=== PATIENT | female | born 2000 | race Caucasian/White ===

== ENCOUNTER 2024-06-28 08:00 | Outpatient (CLI) | payer OTHER ==
[2024-06-28 18:05] LABS: BILIRUBIN,URINE NEGATIVE (NEGATIVE); GLUCOSE, URINE (UA) NEGATIVE (NEGATIVE); KETONES,URINE (UA) NEGATIVE (NEGATIVE); LEUKOCYTE ESTERASE, URINE NEGATIVE (NEGATIVE); NITRITE,URINE NEGATIVE (NEGATIVE); OCCULT BLOOD,URINE NEGATIVE (NEGATIVE); PROTEIN,URINE NEGATIVE (NEGATIVE); UROBILINOGEN,URINE 0.2 (NORMAL) E.U./dL (NORMAL)
[2024-06-28 18:10] LABS: CLARITY,URINE CLEAR (CLEAR)
[2024-06-28 18:17] LABS: BACTERIA,URINE Rare /HPF (None Seen); RBC,URINE 0-5 /HPF (0-5); SQUAMOUS EPITHELIAL CELL,UR FEW Squamous (<= Few); WBC,URINE 0-3 /HPF (0-5)
[2024-06-28 21:09] LABS: CHLAMYDIA TRACHOMATIS DNA NEGATIVE (NEGATIVE); NEISSERIA GONORRHOEAE DNA NEGATIVE (NEGATIVE); TRICHOMONAS VAGINALIS DNA NEGATIVE (NEGATIVE)
== END 2024-06-28 23:59 | disposition home or self-care (01) ==
LOC: LAB.WC 08:00
PROVIDERS: ATTEND Obstetrics & Gynecology
DX: Z34.90 Encounter for supervision of normal pregnancy, unspecified, unspecified trimester (principal); Z36.89 Encounter for other specified antenatal screening
CPT/HCPCS: 36415; 80053; 81001; 83036; 85025; 86592; 86762; 86787; 86803; 86850; 86900; 86901; 87086; 87340; 87389; 87491; 87591; 87661

== ENCOUNTER 2024-06-28 15:54 | Outpatient (CLI) | payer OTHER ==
[2024-06-28 16:09] LABS: BASOPHILS % (AUTO) 0.2 %; EOSINOPHILS # (AUTO) 0.2 10^3/uL (0.0-0.7); EOSINOPHILS % (AUTO) 1.7 %; HCT - HEMATOCRIT 37.1 % (37.0-47.0); HGB - HEMOGLOBIN 12.8 g/dL (12.0-16.0); LYMPHOCYTES # (AUTO) 1.7 10^3/uL (1.5-3.5); LYMPHOCYTES % (AUTO) 13.2 %; MEAN CORPUSCULAR HEMOGLOBIN 30.2 pg (27.0-31.0); MEAN CORPUSCULAR HGB CONC 34.5 g/dL (32.0-36.0); MEAN CORPUSCULAR VOLUME 87.5 fL (81.0-99.0); MONOCYTES # (AUTO) 0.8 10^3/uL (0.0-1.0); MONOCYTES % (AUTO) 6.4 %; NEUTROPHILS # (AUTO) 9.8 10^3/uL (1.5-6.6); NEUTROPHILS % (AUTO) 78.2 %; PLT - PLATELET COUNT 272 10^3/uL (130-450); RED BLOOD COUNT 4.24 10^6/uL (4.20-5.40); RED CELL DISTRIBUTION WIDTH 12.6 % (12.0-15.0); WHITE BLOOD COUNT 12.6 x10^3/uL (4.8-10.8)
[2024-06-28 16:37] LABS: ALBUMIN/GLOBULIN RATIO 1.3 (1.0-2.2); BILIRUBIN,TOTAL 0.2 mg/dL (0.2-1.0); CALCIUM 9.4 mg/dL (8.5-10.3); CREATININE 0.6 mg/dL (0.6-1.3); POTASSIUM 3.8 mmol/L (3.5-4.5); TOTAL PROTEIN 7.1 g/dL (6.4-8.9)
[2024-06-28 23:09] LABS: ESTIMATED AVERAGE GLUCOSE 85 mg/dL (70-100); HEMOGLOBIN A1c% 4.6 % (4.27-6.07)
== END 2024-06-28 15:55 | disposition home or self-care (01) ==
LOC: LAB 15:54
PROVIDERS: ATTEND Obstetrics & Gynecology
DX: Z34.90 Encounter for supervision of normal pregnancy, unspecified, unspecified trimester (principal); Z36.89 Encounter for other specified antenatal screening
CPT/HCPCS: 36415; 80053; 83036; 85025; 86592; 86762; 86787; 86803; 86850; 86900; 86901; 87340; 87389

== ENCOUNTER 2024-11-17 20:18 | Inpatient (IN) ==
[2024-11-17] MEDS ORDERED: ONDANSETRON ODT 4 MG TABLET TL PRN (20:56)
[2024-11-17] MEDS ORDERED: NIFEdipine 10 MG CAPSULE PO PRN (20:56)
[2024-11-17] MEDS ORDERED: LABETALOL 20 MG/4 ML SYRINGE IVP PRN ×3 (20:56)
[2024-11-17] MEDS ORDERED: OXYTOCIN 10 UNIT/ML VIAL IM PRN (20:56)
[2024-11-17] MEDS ORDERED: METOCLOPRAMIDE 10 MG TABLET PO PRN (20:56)
[2024-11-17] MEDS ORDERED: SODIUM CHLORIDE FLUSH 0.9% 10 ML SYRINGE IVP PRN (20:56)
[2024-11-17] MEDS ORDERED: ONDANSETRON 4 MG/2 ML VIAL IVP PRN (20:56)
[2024-11-17] MEDS ORDERED: TRANEXAMIC ACID IN NACL 1,000 MG/100 ML BAG IV PRN (20:56)
[2024-11-17] MEDS ORDERED: LACTATED RINGERS 1,000 ML IV PRN (20:56)
[2024-11-17] MEDS ORDERED: CARBOPROST TROMETHAMINE 250 MCG/ML VIAL IM PRN (20:56)
[2024-11-17] MEDS ORDERED: lidocaine 1% 20 ML MDV ID PRN (20:56)
[2024-11-17] MEDS ORDERED: hydrALAZINE INJ 20 MG/ML VIAL IVP PRN ×2 (20:56)
[2024-11-17] MEDS ORDERED: METOCLOPRAMIDE 10 MG/2 ML VIAL IVP PRN (20:56)
[2024-11-17] MEDS ORDERED: METHYLERGONOVINE 0.2 MG/ML VIAL IM PRN (20:56)
[2024-11-17] MEDS ORDERED: miSOPROStoL 200 MCG TABLET BC PRN (20:56)
[2024-11-17] MEDS ORDERED: miSOPROStoL 100 MCG TABLET VG SCH (21:00)
[2024-11-17 21:48] LABS: ALBUMIN 3.6 g/dL (3.2-5.5); ALBUMIN/GLOBULIN RATIO 1.4 (1.0-2.2); BILIRUBIN,TOTAL 0.2 mg/dL (0.2-1.0); CALCIUM 9.3 mg/dL (8.5-10.3); CREATININE 0.7 mg/dL (0.6-1.3); POTASSIUM 3.6 mmol/L (3.5-4.5); TOTAL PROTEIN 6.2 g/dL (6.4-8.9)
[2024-11-17] MEDS ORDERED: ZOLPIDEM 5 MG TABLET PO PRN (21:49)
--- NOTE | 2024-11-17 22:04 | HISTORY & PHYSICAL EXAMINATION ---
Admit History Visit Reason Visit Reason: Other (24yo at 37.1w presenting for scheduled IOL for GHTN) : 1 Parity: 0 Care: positive [facility] Risk/History: positive Labor induction Complications This : positive induced HTN Smoking Status: Never smoker Mother's Labs Mother's Blood Type: positive B Mother's RH: positive Positive GBS: positive Group B Strep Positive Rubella Status: positive Immune Other Maternal History Other Maternal History: BMI: 28.08 Blood type: B+ Antibody Screen: negative CBC: PLT/HCT/HGB 12.8/37.1 plt 272 RUB: IMMUNE VZV: IMMUNE HBsAg: NEGATIVE HepC: NR RPR: NR HIV: NR Flu: 08/18 at [facility]. Covid: declines PAP:06/28- NILM GC/CT: NEGATIVE HSV: denies self/partner Genetic testing: Quad screen Negative A1C; 4.6 FAS: Placenta: posterior w/o previa Cord: 3VC LILLY: 16.2 EFW: 496.9g 77.2%ile 50gm OGCT: 136 TDAP: 09/13 Breast Pump: 09/13 RSV: declines 10/26/24 info from CDC given CBC: 12.2/37.5/244 RPR: NR 10/22/25 US for growth done FINDINGS: Presentation: Vertex Placenta: Placental position is posterior without previa. Amniotic fluid index: 11.1 cm, 20% for gestational age. heart rate: 157 beats per minute. Maternal cervical canal: 3.9 cm long; normal length is 2.5 cm or more. biometrics: Biparietal diameter: 8.2 cm, 32 week 6 day, 30 percentile Head circumference: 30.4 cm, 33 week 6 day, 23 percentile Abdominal circumference: 28.3 cm, 32 week 2 day, 22 percentile Femur length: 6.2 cm, 32 week 0 day, 90 percentile Estimated gestational age by working dates: 33 week 3 day Composite gestational age by current ultrasound: 32 week 5 day Estimated weight and percentile: 1974 g, 16 percentile HPI Diagnosis/Indication for NST: Gestational Hypertension NST Procedure NST Procedure: Scheduled induction, no NST, direct admit Meds/Allgy Home Medications Ambulatory Orders Medication Instructions Recorded Confirmed vits no.126-ferrous fum 1 tab PO QDAY 08/15/24 11/16/24 28 mg iron-folic acid 800 mcg tablet (Classic ) labetalol 100 mg tablet 100 mg PO BID #180 tabs 10/04/24 11/16/24 Allergies Allergies Allergy/AdvReac Type Severity Reaction Status Date / Time No Known Drug Allergies Allergy Verified 11/02/24 10:03 PFSH Family History Family History (Updated 10/04/24 @ 09:42 by Amie Merino MA) Paternal grandmother Cancer Father Seizure Sister Seizure Mother Anxiety Depressed Social History Social History (Updated 10/04/24 @ 09:43 by Amie Merino MA) Smoking Status: Never smoker Physical Activity: Walking Review of Systems Status of ROS: 10 or more systems reviewed and unremarkable except as noted in history and below Physical Abdominal Exam Contraction Frequency (min/apart): None Contraction Intensity: positive Mild Uterine Resting Tone: positive Soft Monitoring Heart Rate Baseline: 130s, moderate variability, positive accelerations 15x15, no decelerations Strip Review: positive Category I Presentation Presentation: positive Vertex (US confirmed. Placenta posterior. EFW 3200g) Vaginal Exam Dilation (in cm): 0 Effacement (%): 50 Station: positive -3 Cervical Position: positive Posterior Plan for Labor Plan For Labor I expect patient to be DC'd or transferred within 96 hours.: Yes Conclusion/Plan Problem List (1) Gestational [-induced] hypertension without significant proteinuria, complicating childbirth: Plan: 24yo at 37.1w by LMP confirmed by 20w US admitted for scheduled IOL for GHTN - Admit, CBC, CMP, T&S - Labetalol 200mg BID ordered, current BP 140s/90s. - GBS positive, treat in active labor - Misoprostol 50mcg BC q6h ordered (2) 37 weeks gestation of : Plan: Medical IOL- GHTN Lab Results Lab results reviewed: Yes 11/17/24 21:15
[2024-11-17] MEDS: miSOPROStoL 100 MCG TABLET BC SCH (22:08)
[2024-11-17 22:13] LABS: BASOPHILS % (AUTO) 0.4 %; EOSINOPHILS # (AUTO) 0.2 10^3/uL (0.0-0.7); EOSINOPHILS % (AUTO) 1.8 %; HCT - HEMATOCRIT 34.8 % (37.0-47.0); LYMPHOCYTES # (AUTO) 1.5 10^3/uL (1.5-3.5); LYMPHOCYTES % (AUTO) 16.3 %; MEAN CORPUSCULAR HEMOGLOBIN 30.6 pg (27.0-31.0); MEAN CORPUSCULAR HGB CONC 34.5 g/dL (32.0-36.0); MEAN CORPUSCULAR VOLUME 88.8 fL (81.0-99.0); MEAN PLATELET VOLUME 12.1 fL (7.9-10.8); MONOCYTES # (AUTO) 0.7 10^3/uL (0.0-1.0); NEUTROPHILS # (AUTO) 6.8 10^3/uL (1.5-6.6); PLT - PLATELET COUNT 187 10^3/uL (130-450); RED BLOOD COUNT 3.92 10^6/uL (4.20-5.40); RED CELL DISTRIBUTION WIDTH 12.7 % (12.0-15.0); WHITE BLOOD COUNT 9.3 x10^3/uL (4.8-10.8)
[2024-11-17 22:54] LABS: CREATININE,URINE 43.4 mg/dL; PROTEIN/CREATININE RATIO,URINE 0.1 (<=0.2)
[2024-11-18] MEDS: LABETALOL 100 MG TABLET PO SCH (09:04)
--- NOTE | 2024-11-18 14:46 | PROVIDER PROGRESS NOTE ---
Labor Progress Note Uterine Monitoring Uterine Monitoring Mode: positive External toco Contraction Frequency (min/apart): irreg contraction, felt by patient as cramping. Monitoring Monitor Mode: positive External ultrasound Heart Rate Variability: positive Moderate (6-25 bmp) Accelerations: positive Present, 15x15 Decelerations: positive Variable Vaginal Exam Dilation (in cm): closed Effacement (%): 80 Station: -3 Cervical Position: Posterior Labor Progress Note Labor Progress Note/Additional Text: seen and examined about 10:20 am. 3rd dose of miso due. 50 q 6. some variable decels better wtih position change. cervix is a dimple I can barely reach. not able to get a balloon in yet. exams are quite uncomfortable for her. will give 3rd dose and recheck in 6 hrs.
--- NOTE | 2024-11-18 15:04 | PHARMACY PROGRESS NOTE ---
Best Possible Medication History Admit Date and Time: 11/17/242055 Home Medications Medication Instructions Recorded Confirmed Type vits no.126-ferrous fum 1 tab PO QDAY 08/15/24 11/18/24 History 28 mg iron-folic acid 800 mcg tablet (Classic ) labetalol 100 mg tablet 100 mg PO BID #180 tabs 10/04/24 11/18/24 Rx Processed by: Pharmacy Medications reviewed in ED?: No Medication History completed: Yes Patient Interview: Completed Secondary Source(s): Caregiver and Insurance records [facility] Statement: As the person ultimately responsible for medication therapy, providers are able to order a medication from an existing home medication list in [facility] via the "Reconcile Routine" prior to Confirmation of that medication by business support specialist. Such practice is discouraged except when the physician, in their clinical judgment, deems that a medical need exists for a medication without regard to previous use.
--- NOTE | 2024-11-18 18:17 | PROVIDER PROGRESS NOTE ---
Labor Progress Note Uterine Monitoring Uterine Monitoring Mode: positive External toco Contraction Frequency (min/apart): irreg still. mostly cramping. Vaginal Exam Dilation (in cm): unable to reach Station: -3 Labor Progress Note Labor Progress Note/Additional Text: seen and examined at 16:45. patient is still very comfortable. exams are very hard for her. could barely reach her cervix. miso 50 mcg placed in vagina. no way I would be able to get a catheter in yet. reassess in 4-6 hours.
--- NOTE | 2024-11-18 22:13 | PROVIDER PROGRESS NOTE ---
Labor Progress Note Uterine Monitoring Uterine Monitoring Mode: positive External toco Contraction Frequency (min/apart): still irreg but getting more uncomfortable. Contraction Intensity: positive Mild Uterine Resting Tone: positive Soft Monitoring Monitor Mode: positive External ultrasound Heart Rate Baseline: 140 Heart Rate Variability: positive Moderate (6-25 bmp) Accelerations: positive Present, 15x15 Decelerations: positive Variable Strip Review: positive Category I Vaginal Exam Dilation (in cm): unable to reach Station: -2 Cervical Position: Posterior Labor Progress Note Labor Progress Note/Additional Text: MOre uncomfortable. but discouraged. unable to reach to put catheter in cervix. will do pitocin overnight at a low dose, max of 6 mu. she has had miso 50 x 4 so 200 mcg. reassess in am. bp doing fine. 140s;/80s. will give her labetolol.
[2024-11-18] MEDS ORDERED: LABETALOL 100 MG TABLET PO SCH (23:00)
[2024-11-18] MEDS: OXYTOCIN/SODIUM CHLORIDE 500 ML IV SCH (23:08)
[2024-11-18] MEDS: LACTATED RINGERS 1,000 ML IV PRN (23:25)
[2024-11-19] MEDS: miSOPROStoL 100 MCG TABLET VG SCH (07:30)
[2024-11-19] MEDS: PRENATAL VITAMIN TABLET PO SCH (08:37)
--- NOTE | 2024-11-19 11:19 | PROVIDER PROGRESS NOTE ---
Labor Progress Note Uterine Monitoring Uterine Monitoring Mode: positive External toco Contraction Frequency (min/apart): irregular Contraction Intensity: positive Mild Monitoring Monitor Mode: positive External ultrasound Heart Rate Baseline: 130 Heart Rate Variability: positive Moderate (6-25 bmp) Accelerations: positive Present, 15x15 Decelerations: positive None Strip Review: positive Category I Labor Progress Note Labor Progress Note/Additional Text: Patient doing very well. Restarted misoprostol this morning. Will recheck at approximately 1130 for possible continuation of misoprostol versus cervical ripening balloon. Has had 24 hours of misoprostol followed by overnight oxytocin and minimal change. Essentially restarting today. Discussed with patient there is no urgency to this and that she and baby are both stable.
[2024-11-19] MEDS ORDERED: fentaNYL 100 MCG/2 ML VIAL ONE (12:22)
--- NOTE | 2024-11-19 13:04 | PROVIDER PROGRESS NOTE ---
Labor Progress Note Labor Progress Note Labor Progress Note/Additional Text: Patient cervix still high did not tolerate vaginal exam, so attempted speculum placement of cervical ripening balloon, but patient similar did not tolerate. Cervix felt soft, medium effacement, high, but detailed cervical exam not poss ible. Decision made to proceed with misoprostol rather than attempting cervical ripening balloon further. Having intermittent contractions but nothing regular. Encourage patient to go for a walk and keep her mind distracted as this is taking longer than usual, but still can be normal. heart tracing still reassuring at 130 bpm baseline, moderate variability, accelerations present, no decelerations. Category 1.
[2024-11-19] MEDS: fentaNYL 100 MCG/2 ML VIAL IVP PRN (20:35)
--- NOTE | 2024-11-19 21:12 | PROVIDER PROGRESS NOTE ---
Labor Progress Note Uterine Monitoring Uterine Monitoring Mode: positive External toco Contraction Frequency (min/apart): Irregular Contraction Intensity: positive Mild Monitoring Monitor Mode: positive External ultrasound Heart Rate Baseline: 130 Heart Rate Variability: positive Moderate (6-25 bmp) Accelerations: positive Present, 15x15 Decelerations: positive None Strip Review: positive Category I Vaginal Exam Dilation (in cm): 1 Effacement (%): 50 Station: -3 Labor Progress Note Labor Progress Note/Additional Text: Cervical exam still painful for patient. Attempted to see replacement again, but patient did not tolerate despite fentanyl use. Was able tolerate cervical exam which is improvement from prior, but still 1 cm dilated. Will continue misoprostol overnight. Anticipate switching to oxytocin in the a.m. Will discuss pain management options with patient, including epidural followed by oxytocin and CRB if cervix still 1 cm dilated. No severe range blood pressures, fetus category 1.
--- NOTE | 2024-11-20 08:50 | PROVIDER PROGRESS NOTE ---
Labor Progress Note Uterine Monitoring Uterine Monitoring Mode: positive External toco Contraction Frequency (min/apart): Irregular Monitoring Monitor Mode: positive External ultrasound Heart Rate Baseline: 130 Heart Rate Variability: positive Moderate (6-25 bmp) Accelerations: positive Present, 15x15 Decelerations: positive None Strip Review: positive Category I Vaginal Exam Dilation (in cm): 2 Effacement (%): 50 Station: -3 Labor Progress Note Labor Progress Note/Additional Text: Minimal change since last night. Will start oxytocin 4 hours after last dose of misoprostol. Discussed difficult induction and that usually we try to ripen the cervix more, but we have tried many things unsuccessfuly. Will try oxytocin to get contractions to bring down cervix then consider epidural for balloon or amniotomy. Patient is feeling disheartened, but spirit still ok. BP remains without concern, fetus category 1. Overall very reassuring and not in a hurry.
[2024-11-20] MEDS: OXYTOCIN/SODIUM CHLORIDE 500 ML IV SCH (09:15)
[2024-11-20] MEDS ORDERED: ROPIVACAINE 0.2% 200 MG/100 ML BAG EP ONE (13:14)
[2024-11-20] MEDS ORDERED: LIDOCAINE 2%-EPI 1:100000 20 ML MDV ONE (13:14)
[2024-11-20] MEDS ORDERED: NALOXONE 0.4 MG/ML VIAL IVP PRN (13:56)
[2024-11-20] MEDS ORDERED: METOCLOPRAMIDE 10 MG/2 ML VIAL IVP PRN (13:56)
[2024-11-20] MEDS ORDERED: NALBUPHINE 10 MG/ML AMP IVP PRN (13:56)
[2024-11-20] MEDS ORDERED: ONDANSETRON 4 MG/2 ML VIAL IVP PRN (13:56)
[2024-11-20] MEDS ORDERED: ePHEDrine 50 MG/ML VIAL IVP PRN (13:56)
[2024-11-20] MEDS ORDERED: diphenhydrAMINE INJ 50 MG/ML VIAL IVP PRN (13:56)
--- NOTE | 2024-11-20 13:56 | ANESTHESIA PROCEDURE NOTE ---
Pre-Anesthesia VS, & Labs Diagnosis Surgical Diagnosis:: labor induction Procedure Procedure: labor epidural Vitals Vital Signs: Temp Pulse Resp BP Pulse Ox 36.8 C 95 16 131/86 H 98 11/20/24 08:59 11/20/24 08:59 11/20/24 08:59 11/20/24 08:59 11/20/24 08:59 NPO NPO: >8 hours Is Patient ?: Yes Lab Results Current Lab Results: Laboratory Tests 11/17/24 21:15: WBC 9.3, RBC 3.92 L, Hgb 12.0, Hct 34.8 L, MCV 88.8, MCH 30.6, MCHC 34.5, RDW 12.7, Plt Count 187, MPV 12.1 H, Neut # (Auto) 6.8 H, Lymph # (Auto) 1.5, [place] # (Auto) 0.7, Eos # (Auto) 0.2, Baso # (Auto) 0.0, Absolute Nucleated RBC 0.00, Nucleated RBC % 0.0, Sodium 133 L, Potassium 3.6, Chloride 105, Carbon Dioxide 20 L, Anion Gap 8.0, BUN 12, Creatinine 0.7, Estimated GFR (MDRD) 101, Glucose 114 H, Calcium 9.3, Total Bilirubin 0.2, AST 19, ALT 33, Alkaline Phosphatase 116, Total Protein 6.2 L, Albumin 3.6, Globulin 2.6, Albumin/Globulin Ratio 1.4, Blood Type B POSITIVE, Antibody Screen NEGATIVE 11/17/24 21:15 11/17/24 21:15 Meds/Allgy Home Medications Ambulatory Orders Medication Instructions Recorded Confirmed vits no.126-ferrous fum 1 tab PO QDAY 08/15/24 11/18/24 28 mg iron-folic acid 800 mcg tablet (Classic ) labetalol 100 mg tablet 100 mg PO BID #180 tabs 10/04/24 11/18/24 Allergies Allergies Allergy/AdvReac Type Severity Reaction Status Date / Time No Known Drug Allergies Allergy Verified 11/02/24 10:03 PFSH Family History Family History (Updated 10/04/24 @ 09:42 by Amie Merino MA) Paternal grandmother Cancer Father Seizure Sister Seizure Mother Anxiety Depressed Social History Social History (Updated 10/04/24 @ 09:43 by Amie Merino MA) Smoking Status: Never smoker Do you dip or chew tobacco?: No Physical Activity: Walking Anesthesia Exam (Expanded) Exam General: Alert and Oriented x3 Dental: WNL Mouth Opening: Greater than 4 Fingerbreadths Neck Mobility: Normal Mallampati classification: II Thyromental Distance: 4-6 cm Respiratory: Lungs clear Cardiovascular: Regular rate Plan Problem List (1) Gestational [-induced] hypertension without significant proteinuria, complicating childbirth: Plan: 24yo at 37.1w by LMP confirmed by 20w US admitted for scheduled IOL for GHTN - Admit, CBC, CMP, T&S - Labetalol 200mg BID ordered, current BP 140s/90s. - GBS positive, treat in active labor - Misoprostol 50mcg BC q6h ordered (2) 37 weeks gestation of : Plan: Medical IOL- GHTN Plan Anesthesia Type: Epidural Consent for Procedure(s) Verified and Reviewed: Yes Code Status: Attempt Resuscitation ASA Classification ASA classification: 2-Mild systemic disease Is this case an emergency?: No
--- NOTE | 2024-11-20 15:10 | PROVIDER PROGRESS NOTE ---
Labor Progress Note Uterine Monitoring Uterine Monitoring Mode: positive External toco Contraction Intensity: positive Mild to moderate Labor Progress Note Labor Progress Note/Additional Text: Unable to tolerate cervical exam or balloon placement despite epidural bolus, will allow epidural to set up more and attempt later. 130 bpm baseline, moderate variability, accelerations present, occasional variable deceleration. Category 2. Contractions every 2 to 3 minutes.
--- NOTE | 2024-11-20 17:55 | PROVIDER PROGRESS NOTE ---
Labor Progress Note Uterine Monitoring Uterine Monitoring Mode: positive External toco Labor Progress Note Labor Progress Note/Additional Text: Balloon was placed at approximately 1650 with 80 uterine and a 40 mm vaginal. Patient tolerated placement well. 130 beats per minute baseline, moderate variability, accelerations present, occasional variable deceleration. Category 2. Oxytocin currently at 4 mL/min, continue with current plan. Has been a very long induction, but finally able to place balloon after patient received epidural and got comfortable. Plan to remain in place over 12 hours and ideally can perform an amniotomy once dilated. .
[2024-11-20 18:32] LABS: BASOPHILS % (AUTO) 0.3 %; EOSINOPHILS # (AUTO) 0.2 10^3/uL (0.0-0.7); EOSINOPHILS % (AUTO) 1.8 %; HCT - HEMATOCRIT 36.1 % (37.0-47.0); HGB - HEMOGLOBIN 11.8 g/dL (12.0-16.0); LYMPHOCYTES # (AUTO) 1.2 10^3/uL (1.5-3.5); LYMPHOCYTES % (AUTO) 12.2 %; MEAN CORPUSCULAR HEMOGLOBIN 29.4 pg (27.0-31.0); MEAN CORPUSCULAR HGB CONC 32.7 g/dL (32.0-36.0); MEAN PLATELET VOLUME 11.4 fL (7.9-10.8); MONOCYTES # (AUTO) 0.6 10^3/uL (0.0-1.0); MONOCYTES % (AUTO) 6.3 %; NEUTROPHILS # (AUTO) 7.7 10^3/uL (1.5-6.6); NEUTROPHILS % (AUTO) 78.9 %; PLT - PLATELET COUNT 192 10^3/uL (130-450); RED BLOOD COUNT 4.01 10^6/uL (4.20-5.40); RED CELL DISTRIBUTION WIDTH 12.6 % (12.0-15.0); WHITE BLOOD COUNT 9.8 x10^3/uL (4.8-10.8)
[2024-11-20 18:51] LABS: ALBUMIN 3.3 g/dL (3.2-5.5); ALBUMIN/GLOBULIN RATIO 1.4 (1.0-2.2); BILIRUBIN,TOTAL 0.2 mg/dL (0.2-1.0); CALCIUM 9.1 mg/dL (8.5-10.3); CREATININE 0.7 mg/dL (0.6-1.3); POTASSIUM 3.9 mmol/L (3.5-4.5); TOTAL PROTEIN 5.6 g/dL (6.4-8.9)
[2024-11-20 19:03] LABS: CREATININE,URINE 100.2 mg/dL; PROTEIN/CREATININE RATIO,URINE 0.1 (<=0.2)
[2024-11-20] MEDS: ROPIVACAINE 0.2% 200 MG/100 ML BAG EP PRN (20:51)
[2024-11-21] MEDS ORDERED: CITRIC ACID/SODIUM CITRATE 15 ML UDC PO ONE (00:05)
--- NOTE | 2024-11-21 02:29 | PROVIDER PROGRESS NOTE ---
Labor Progress Note Uterine Monitoring Uterine Monitoring Mode: positive External toco Contraction Frequency (min/apart): Irregular Monitoring Monitor Mode: positive External ultrasound Heart Rate Baseline: 130 Heart Rate Variability: positive Moderate (6-25 bmp) Accelerations: positive Present, 15x15 Decelerations: positive None Strip Review: positive Category I Labor Progress Note Labor Progress Note/Additional Text: Cervical ripening balloon expelled spontaneously at approximately 0042. Continue oxytocin at this time. Plan to increase oxytocin as staffing allows, consider amniotomy. 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 Patient sleeping soundly..
[2024-11-21] MEDS: AMPICILLIN 2 GM in SODIUM CHLORIDE 0.9% MINIBAG 100 ML IV ONE (03:48)
[2024-11-21] MEDS: AMPICILLIN 1 GM in SODIUM CHLORIDE 0.9% MINIBAG 100 ML IV SCH (08:27)
[2024-11-21] MEDS: LACTATED RINGERS 500 ML IV ONE (09:46)
--- NOTE | 2024-11-21 11:01 | PROVIDER PROGRESS NOTE ---
Labor Progress Note Labor Progress Note Labor Progress Note/Additional Text: S: Comfortable with epidural. Agreeable with SVE and AROM with IUPC placement. [facility] 5/50[facility]2, cervix still feels firm. monitoring: FHTs: 130s bpm baseline, + accel, occasional small variable decelerations, mod variability [place]: not tracing well prior to IUPC, 1-5 min after IUPC placement Cat 2, overall reassuring A/P: 24 yo undergoing IOL for gHTN - now s/p AROM with IUPC placement, continue pitocin and titrate to adequate MVUs. - continue ampicillin for GBS pos - continue labetalol 200mg BID. Labs last night were normal. Will monitor. Laurence Pappas MD
[2024-11-21] MEDS ORDERED: LIDOCAINE-MPF 1% 5 ML VIAL ONE (13:28)
[2024-11-21] MEDS ORDERED: SODIUM CHLORIDE 0.9% 10 ML VIAL IVP ONE ×3 (14:03→23:36)
[2024-11-21] MEDS ORDERED: fentaNYL 100 MCG/2 ML VIAL ONE ×3 (14:03→17:46)
--- NOTE | 2024-11-21 14:25 | ANESTHESIA PROCEDURE NOTE ---
Anesthesia Epidural Template Exam Epidural Medication Information: Epidural Medications Medication Ropivicaine Continuous Infusion Rate (mL/ 10 hr) Demand Dose Setting 5 Bolus Amount 0 Other Comments Other Comments: Patient having pain with contractions. T-10 level on right side, L1 level on left side. Epidural bolused with 100mcg fentanyl with 8ml PF NS. Epidural infusion changed to 10ml q 50 mins PIEB with PCEA 6ml q 10mins with 30ml lockout. Patient reports pain improved to 5/10. Advised patient if pain not improved with recent changes, recommend changing epidural.
[2024-11-21] MEDS ORDERED: LIDOCAINE 2%-EPI 1:100000 20 ML MDV ONE (14:54)
--- NOTE | 2024-11-21 15:19 | ANESTHESIA PROCEDURE NOTE ---
Anesthesia Epidural Template Exam Epidural Medication Information: Epidural Medications Medication Ropivicaine Continuous Infusion Rate (mL/ 10 hr) Demand Dose Setting 5 Bolus Amount 0 Other Comments Other Comments: Patient reports she has inadequate pain control and agrees to have epidural replaced. Previously placed epidural removed with tip intact. Chlorahexadine prep to lower back. L3-L4 interspace localized with 3ml of 1% lidocaine. #17G t uohy needle inserted with NELYL at 7cm. 25G alfonzo needle used for CSE, 20mcg fentanyl injected. Epidural catheter threaded with ease to 13cm. Negative test dose with 3ml of 2% lidocaine with epi. Epidural pump set to 10ml/hr with 5ml PCEA (0.2%ropivicaine). Patient tolerated well and comfortable with contractions.
[2024-11-21] MEDS ORDERED: LIDOCAINE-PF 2% 10 ML AMP SUBQ ONE ×2 (17:46→23:43)
--- NOTE | 2024-11-21 18:45 | ANESTHESIA PROCEDURE NOTE ---
Anesthesia Epidural Template Exam Epidural Medication Information: Epidural Medications Medication Ropivicaine Continuous Infusion Rate (mL/ 10 hr) Demand Dose Setting 5 Bolus Amount 0 Other Comments Other Comments: Patient c/o pain with contractions. Adjusted epidural pump to give PIEB and bolused epidural with 5ml 2% lidocaine, 100mcg fentanyl and 10ml PFNS. Patient reports improved pain control after bolus.
[2024-11-21] MEDS ORDERED: fentaNYL 250 MCG/5 ML VIAL ONE (19:15)
--- NOTE | 2024-11-21 20:04 | ANESTHESIA PROCEDURE NOTE ---
Anesthesia Epidural Template Exam Epidural Medication Information: Epidural Medications Medication Ropivicaine Continuous Infusion Rate (mL/ 10 hr) Demand Dose Setting 5 Bolus Amount 0 Other Comments Other Comments: Patient reports increased pain with contractions. Epidural bolused with 8ml 0.2% ropivicaine with 100mcg fentanyl. Fentanyl 4mcg/ml added to epidural infusion (0.2% ropivacaine) and rate changed to 14ml q 45mins PIEB with no PCEA. Patient reports improved pain control.
--- NOTE | 2024-11-21 20:54 | PROVIDER PROGRESS NOTE ---
Labor Progress Note Labor Progress Note Labor Progress Note/Additional Text: S: Has had difficulties with pain control throught the day. Now using nitrous along with the epidural, still feeling contractions but they are better. [facility] 6-7/80[facility]1, firm monitoring: FHTs: 130s bpm baseline, mod variability, + accel, intermittent early/variable decels [place]: 2-3 min Cat 2 A/P: 24 yo undergoing IOL for gHTN. SVE unchanged with this exam, although different examiner (previously checked by day RN). Discussed continued pitocin with titration to adequate MVUs. Plan for repeat SVE in 3 hours. She did have a few severe range BPs earlier in the afternoon, however, was in severe pain. Otherwise asymptomatic for preeclampsia. Will continue to monitor. Laurence Pappas MD
--- NOTE | 2024-11-21 23:18 | PROVIDER PROGRESS NOTE ---
Labor Progress Note Labor Progress Note Labor Progress Note/Additional Text: Feeling lots of pressure, wanting to push. SVE 9.5 and + 1, small amount of cervix on the right side. FHTs Cat 2 with small intermittent variable decelerations, overall reassuring. Plan for repeat SVE in 30 min and will start pushing once complete. Laurence Pappas MD
[2024-11-21] MEDS ORDERED: DEXMEDETOMIDINE 200 MCG/2 ML VIAL ONE (23:38)
[2024-11-22] MEDS: OXYTOCIN/SODIUM CHLORIDE 500 ML IV PRN (00:08)
--- NOTE | 2024-11-22 00:08 | DELIVERY NOTE ---
Delivery Note Labor Labor: positive Induced by ARM Cervical Ripening Method Cervical Ripening Method: positive Balloon device, Misoprostil and Oxytocin Presentation Presentation: positive Vertex and PRO - left occiput anterior Nuchal Cord Nuchal Cord: positive None Amniotic Fluid Description Amniotic Fluid Description: positive Clear Episiotomy Type Episiotomy Type: positive None Laceration Laceration: positive Labial (right, hemostatic) [place]: positive Placed in direct skin contact with mother, Stimulated and Warmed [place] sex: positive Male Cord Cord: positive 3 vessels Placenta Placenta: positive Intact and Expressed Estimated Blood Loss Estimated Blood Loss (in cc): 100 Post Delivery Events Post Delivery Events: positive No post delivery events Delivery Comments (Free Text/Narrative) Delivery Comments (Free Text/Narrative): I was called to the bedside for patient complete and ready to start pushing. The anterior shoulder delivered easily with maternal effort and gentle downward pressure followed by the posterior shoulder and the remainder of the body. The was placed on the mother's abdomen. After 60 sec the cord was clamped times two and cut. Cord blood collected. Pitocin was started. The placenta was delivered intact. Excellent uterine tone noted. The perineum was inspected and a right labial laceration noted, hemostatic and not repaired. Laurence Pappas MD
[2024-11-22] MEDS ORDERED: NALOXONE 0.4 MG/ML VIAL IVP PRN (00:09)
[2024-11-22] MEDS ORDERED: LABETALOL 5 MG/1 ML 20 ML MDV IVP PRN (00:09)
[2024-11-22] MEDS ORDERED: WITCH HAZEL/GLYCERIN 1 PAD TOP PRN (00:09)
[2024-11-22] MEDS ORDERED: oxyCODONE 5 MG TABLET PO PRN (00:09)
[2024-11-22] MEDS ORDERED: NIFEdipine 10 MG CAPSULE PO PRN (00:09)
[2024-11-22] MEDS ORDERED: LABETALOL 20 MG/4 ML SYRINGE IVP PRN ×2 (00:09)
[2024-11-22] MEDS ORDERED: HYDROCORTISONE 1% CREAM 28 GM TUBE TOP PRN (00:09)
[2024-11-22] MEDS ORDERED: OXYTOCIN/SODIUM CHLORIDE 500 ML IV PRN (00:09)
[2024-11-22] MEDS ORDERED: hydrALAZINE INJ 20 MG/ML VIAL IVP PRN ×2 (00:09)
[2024-11-22] MEDS ORDERED: SIMETHICONE CHEW 80 MG TABLET PO PRN (00:09)
[2024-11-22] MEDS: IBUPROFEN 600 MG TABLET PO PRN (02:51)
[2024-11-22 06:33] LABS: HCT - HEMATOCRIT 35.7 % (37.0-47.0); HGB - HEMOGLOBIN 11.9 g/dL (12.0-16.0); MEAN CORPUSCULAR HEMOGLOBIN 30.1 pg (27.0-31.0); MEAN CORPUSCULAR HGB CONC 33.3 g/dL (32.0-36.0); MEAN CORPUSCULAR VOLUME 90.2 fL (81.0-99.0); MEAN PLATELET VOLUME 11.2 fL (7.9-10.8); RED BLOOD COUNT 3.96 10^6/uL (4.20-5.40); RED CELL DISTRIBUTION WIDTH 12.4 % (12.0-15.0)
[2024-11-22 06:46] LABS: ALBUMIN 3.4 g/dL (3.2-5.5); ALBUMIN/GLOBULIN RATIO 1.1 (1.0-2.2); BILIRUBIN,TOTAL 0.5 mg/dL (0.2-1.0); CALCIUM 8.8 mg/dL (8.5-10.3); CREATININE 0.7 mg/dL (0.6-1.3); POTASSIUM 4.1 mmol/L (3.5-4.5); TOTAL PROTEIN 6.4 g/dL (6.4-8.9)
[2024-11-22] MEDS: DOCUSATE SODIUM 100 MG CAPSULE PO SCH (09:10)
[2024-11-22 10:28] VITALS: O2SAT 98
--- NOTE | 2024-11-22 10:47 | PROVIDER PROGRESS NOTE ---
Subjective Prog Note Date Prog Note Date: 11/22/24 Subjective Subjective: She reports that she is feeling well. Pain is well controlled with current medications. She is ambulating without difficulty. She is tolerating a normal diet. She is voiding without difficulty. Lochia reported as normal. Denies NAVARRO, vision changes, upper abdominal pain. Current Medications Current Medications Current Medications: Current Medications Generic Name Dose Route Start Last Admin Trade Name Freq PRN Reason Stop Dose Admin Acetaminophen 1,000 mg 11/22/24 00:09 Acetaminophen 500 Mg Tablet PO Q8HR PRN Mild Pain or Fever>38C(100.4F) Carboprost Tromethamine 250 mcg 11/17/24 20:56 Carboprost Tromethamine 250 Mcg/Ml Vial IM 11/22/24 20:56 Q15M PRN Step 4: Hemorrhage protocol Diphenhydramine HCl 12.5 - 25 mg 11/20/24 13:56 Diphenhydramine Inj 50 Mg/Ml Vial IVP Q6HR PRN ITCHING Docusate Sodium 100 mg 11/22/24 09:00 11/22/24 09:10 Docusate Sodium 100 Mg Capsule PO 100 mg BID GIULIANO Administration Ephedrine Sulfate 5 mg 11/20/24 13:56 Ephedrine 50 Mg/Ml Vial IVP Q5M PRN For SBP<100;give until SBP>100 Fentanyl 50 mcg 11/19/24 12:20 11/19/24 20:35 Fentanyl 100 Mcg/2 Ml Vial IVP 50 mcg Q1H PRN Administration Severe Pain (score 7-10) Hydralazine HCl 5 - 20 mg 11/17/24 20:56 Hydralazine Inj 20 Mg/Ml Vial IVP Q20M PRN SBP >160 or DBP >110 Protocol Hydralazine HCl 10 mg 11/17/24 20:56 Hydralazine Inj 20 Mg/Ml Vial IVP 11/22/24 20:56 .ONCE PRN Step 9 of Labetalol protocol Protocol Hydralazine HCl 10 mg 11/22/24 00:09 Hydralazine Inj 20 Mg/Ml Vial IVP .ONCE PRN SBP> or= 160 OR DBP> or= 110 Protocol Hydralazine HCl 5 - 10 mg 11/22/24 00:09 Hydralazine Inj 20 Mg/Ml Vial IVP Q20M PRN SBP >=160 and/or DBP >=110 Protocol Hydrocortisone 1 applic 11/22/24 00:09 Hydrocortisone 1% Cream 28 Gm Tube TOP QID PRN Hemorrhoids Lactated Ringer's 1,000 mls @ 100 mls/hr 11/17/24 20:56 11/22/24 02:30 Lr IV 125 mls/hr .Q10H PRN Infusion Save for active labor Oxytocin/Sodium Chloride 500 mls @ 999 mls/hr 11/17/24 20:56 11/22/24 00:08 Pitocin/Sodium Chloride IV 11/22/24 20:56 999 milliunit/min PRN PRN 999 mls/hr POST- HEMORR PREVENTION Administration Protocol 999 MILLIUNIT/MIN Tranexamic Acid 1,000 mg in 100 mls @ 600 mls/hr 11/17/24 20:56 Tranexamic 1,000 Mg/100ml-Nacl IV 11/22/24 20:56 .ONCE PRN EBL >1200mL and within 3hr Oxytocin/Sodium Chloride 500 mls @ 2 mls/hr 11/20/24 09:00 11/22/24 02:00 Pitocin/Sodium Chloride IV Infused TITR GIULIANO Titration Protocol 2 MILLIUNIT/MIN Ropivacaine 200 mg in 100 mls @ 0 mls/hr 11/20/24 13:56 11/21/24 11:59 Naropin 0.2% EP 10 mls/hr PRN PRN Administration PAIN Protocol Per Protocol Ampicillin Sodium 1 gm/ Sodium 100 mls @ 200 mls/hr 11/21/24 08:00 11/21/24 21:40 Chloride IV Infused Q4H GIULIANO Infusion Oxytocin/Sodium Chloride 500 mls @ 999 mls/hr 11/22/24 00:09 Pitocin/Sodium Chloride IV PRN PRN POST- HEMORR PREVENTION Protocol 999 MILLIUNIT/MIN Ibuprofen 600 mg 11/22/24 00:09 11/22/24 09:08 Ibuprofen 600 Mg Tablet PO 600 mg Q6HR PRN Administration Moderate Pain (Level 4-6) Labetalol HCl 20 - 80 mg 11/17/24 20:56 Labetalol 20 Mg/4 Ml Syringe IVP Q10M PRN SBP >160 or DBP >110 Protocol Labetalol HCl 20 mg 11/17/24 20:56 Labetalol 20 Mg/4 Ml Syringe IVP 11/22/24 20:56 .ONCE PRN Step 9 of nifedipine protocol Protocol Labetalol HCl 40 mg 11/17/24 20:56 Labetalol 20 Mg/4 Ml Syringe IVP 11/22/24 20:56 .ONCE PRN Step 9 of hydrALAZine protocol Protocol Labetalol HCl 200 mg 11/18/24 09:00 11/22/24 09:08 Labetalol 100 Mg Tablet PO 200 mg BID GIULIANO Administration Labetalol HCl 20 - 80 mg 11/22/24 00:09 Labetalol 5 Mg/1 Ml 20 Ml Mdv IVP Q10M PRN SBP> or= 160 OR DBP> or= 110 Protocol Labetalol HCl 20 - 40 mg 11/22/24 00:09 Labetalol 20 Mg/4 Ml Syringe IVP Q10M PRN SBP> or= 160 OR DBP> or= 110 Protocol Labetalol HCl 20 mg 11/22/24 00:09 Labetalol 20 Mg/4 Ml Syringe IVP .ONCE PRN SBP >=160 and/or DBP >=110 Protocol Lidocaine HCl 20 ml 11/17/24 20:56 Lidocaine 1% 20 Ml Mdv ID 11/22/24 20:56 .ONCE PRN PERINEAL REPAIR Methylergonovine Maleate 0.2 mg 11/17/24 20:56 Methylergonovine 0.2 Mg/Ml Vial IM 11/22/24 20:56 .ONCE PRN Step 2: Hemorrhage protocol Metoclopramide HCl 10 mg 11/17/24 20:56 Metoclopramide 10 Mg Tablet PO Q6H PRN Nausea / Vomiting Metoclopramide HCl 10 mg 11/17/24 20:56 Metoclopramide 10 Mg/2 Ml Vial IVP Q6H PRN Nausea / Vomiting Metoclopramide HCl 10 mg 11/20/24 13:56 Metoclopramide 10 Mg/2 Ml Vial IVP Q6HR PRN Nausea / Vomiting Misoprostol 800 mcg 11/17/24 20:56 Misoprostol 200 Mcg Tablet BC 11/22/24 20:56 .ONCE PRN Step 3: Hemorrhage protocol Nalbuphine HCl 2.5 - 5 mg 11/20/24 13:56 Nalbuphine 10 Mg/Ml Amp IVP Q4H PRN ITCHING Naloxone HCl 0.1 mg 11/20/24 13:56 Naloxone 0.4 Mg/Ml Vial IVP Q2M PRN RR<8 Naloxone HCl 0.4 mg 11/22/24 00:09 Naloxone 0.4 Mg/Ml Vial IVP .ONCE PRN Opioid Overdose Nifedipine 10 - 20 mg 11/17/24 20:56 Nifedipine 10 Mg Capsule PO Q20M PRN SBP >160 or DBP >110 Protocol Nifedipine 10 - 20 mg 11/22/24 00:09 Nifedipine 10 Mg Capsule PO Q20M PRN SBP >=160 and/or DBP >=110 Protocol Ondansetron HCl 4 mg 11/17/24 20:56 Ondansetron 4 Mg/2 Ml Vial IVP Q4HR PRN Nausea / Vomiting Ondansetron HCl 4 mg 11/17/24 20:56 Ondansetron Odt 4 Mg Tablet TL Q4HR PRN Nausea / Vomiting Ondansetron HCl 4 mg 11/20/24 13:56 Ondansetron 4 Mg/2 Ml Vial IVP Q6HR PRN Nausea / Vomiting Oxycodone HCl 5 mg 11/22/24 00:09 Oxycodone 5 Mg Tablet PO Q4HR PRN Severe Pain 6-10 Oxytocin 10 unit 11/17/24 20:56 Oxytocin 10 Unit/Ml Vial IM 11/22/24 20:56 .ONCE PRN Step one: If no IV access Multivit/Folic Acid/Iron 1 tab 11/19/24 09:00 11/22/24 09:10 Vitamin Tablet PO 1 tab DAILY GIULIANO Administration Simethicone 80 mg 11/22/24 00:09 Simethicone Chew 80 Mg Tablet PO TID PRN Gas Sodium Chloride 10 ml 11/17/24 20:56 Sodium Chloride Flush 0.9% 10 Ml Syringe IVP PRN PRN NEEDED PER PROVIDER ORDERS Witch Julita/Glycerin 1 pad 11/22/24 00:09 Witch Julita/Glycerin 1 Pad TOP PRN PRN ITCHING Zolpidem Tartrate 5 mg 11/17/24 21:49 Zolpidem 5 Mg Tablet PO QPM PRN Insomnia Objective Vital Signs/Intake & Output Reviewed Vital Signs: Yes Vital Signs: Vital Signs x48h Temp Pulse Resp BP Pulse Ox 11/22/24 10:00 98.2 F 83 16 149/77 H 98 11/22/24 05:01 98.2 F 77 16 130/77 Intake & Output: Intake & Output 11/19/24 11/20/24 11/21/24 11/22/24 23:59 23:59 23:59 23:59 Intake Total 686 / 686 41 / 41 2793 / 2793 1642 / 1642 Output Total 530 / 530 3800 / 3800 276 / 276 Balance 686 / 686 -489 / -489 -1007 / -1007 1366 / 1366 Lab Results 11/22/24 06:25 11/22/24 06:25 Other Labs: Lab Results x24hrs 11/22/24 Range/Units 06:25 WBC 18.0 H (4.8-10.8) x10^3/uL RBC 3.96 L (4.20-5.40) 10^6/uL Hgb 11.9 L (12.0-16.0) g/dL Hct 35.7 L (37.0-47.0) % MCV 90.2 (81.0-99.0) fL MCH 30.1 (27.0-31.0) pg MCHC 33.3 (32.0-36.0) g/dL RDW 12.4 (12.0-15.0) % Plt Count 208 (130-450) 10^3/uL MPV 11.2 H (7.9-10.8) fL Sodium 135 (135-145) mmol/L Potassium 4.1 (3.5-4.5) mmol/L Chloride 106 (101-111) mmol/L Carbon Dioxide 24 (21-32) mmol/L Anion Gap 5.0 L (6-13) BUN 9 (6-20) mg/dL Creatinine 0.7 (0.6-1.3) mg/dL Estimated GFR (MDRD) 101 (>89) Glucose 81 (74-104) mg/dL Calcium 8.8 (8.5-10.3) mg/dL Total Bilirubin 0.5 (0.2-1.0) mg/dL AST 21 (10-42) IU/L ALT 18 (10-60) IU/L Alkaline Phosphatase 103 (42-121) IU/L Total Protein 6.4 (6.4-8.9) g/dL Albumin 3.4 (3.2-5.5) g/dL Globulin 3.0 (2.1-4.2) g/dL Albumin/Globulin Ratio 1.1 (1.0-2.2) Diagnostic Imaging Diagnostic Imaging Comments: GEN: NAD Resp: non-labored respirations ABDOMEN: Soft, non tender. Fundus firm. EXT: trace LE edema. No evidence of DVT. Assessment/Plan Problem List (1) Gestational [-induced] hypertension without significant proteinuria, complicating childbirth: Impression: - Asymptomatic, repeat labs normal this morning. Will continue labetalol 200mg BID. Discussed if BPs increase to more than 150/100s will increase dose. She does have home BP cuff for home BP monitoring when discharged. (2) care and examination of lactating mother: Impression: - Doing well, continue routine care.
[2024-11-23 09:07] VITALS: BP 131/76; TEMP 98.2
[2024-11-23] MEDS: ACETAMINOPHEN 500 MG TABLET PO PRN (11:33)
--- NOTE | 2024-11-23 13:55 | Discharge Summary ---
Discharge Summary Admit Date: 11/17/24 Discharge Date: 11/23/24 Discharging Provider: Laurence Pappas MD [facility] History of Present Illness: Admission Diagnosis: - SIUP at 37w1d - gHTN - GBS + - Rh + - Rubella immune - Varicella immune Discharge Diagnosis: - Same, delivered Procedures: induction of labor, Hospital Course: Cynthia is a 24 yo now who presented at 37w1d for IOL for gHTN. She had a very long induction with prolonged attempt at cervical ripening, including multiple courses of misoprostol, low-dose pitocin, and cervical ripening balloon. She ultimately had an uncomplicated . At admission, she was started on labetalol 200mg BID and this was continued throughout her stay. BPs normal to mild range on this regimen. Asymptomatic for preeclampsia and with normal labs. Condition on Discharge: SUBJECTIVE: day 2 She feels well. Pain is well controlled with current medications. The baby is doing well. Baby is feeding via . She is ambulating well, tolerating normal diet, urinating without difficulty. Lochia is reported as light. She has a BP cuff at home. OBJECTIVE: Vital signs reviewed GENERAL: NAD CHEST: non labored respirations ABD: soft, non tender, fundus firm EXT: trace lower extremity edema; No evidence of DVT LAB & IMAGING STUDIES: See below PLAN: Plan for discharge home with follow up in clinic at 1 wk . Reviewed home care instructions and medications. Patient counseled regarding signs and symptoms of infection, excessive bleeding, vaginal rest and activity restrictions. Preeclampsia precautions were reviewed. Discussed home BP checks 1-2x daily and discussed when she should call us or be evaluated in the ED. Discussed that additional support is available in our clinic if needed. ALLERGIES Allergies Allergy/AdvReac Type Severity Reaction Status Date / Time No Known Drug Allergies Allergy Verified 11/02/24 10:03 MEDICATIONS Ambulatory Orders Medication Instructions Recorded Confirmed vits no.126-ferrous fum 1 tab PO QDAY 08/15/24 11/18/24 28 mg iron-folic acid 800 mcg tablet (Classic ) labetalol 100 mg tablet 100 mg PO BID #180 tabs 10/04/24 11/18/24 LABS 11/22/24 06:25 11/22/24 06:25 FOLLOW UP Follow Up: OB office 1 wk after day of delivery. TIME SPENT Time Spent in Discharge (Minutes): 20 Discharge Plan Discharge Patient Disposition: Home, Self Care Prescriptions: Continued Classic 28 mg iron- 800 mcg tablet 1 tab PO QDAY labetalol 100 mg tablet 100 mg PO BID Qty: 180 3RF Print Language: Estonian Patient Instructions: Vaginal After, Depression , Change Expect Parents Follow-up Care: Joanne Watson MD [Primary Care Provider] -
--- NOTE | 2024-11-23 14:04 | Labor Flowsheet ---
Labor Flowsheet Datetime Report Generated by CPN: 11/23/2024 14:04 Datetime: 11/23/2024 09:06 VITAL SIGNS NBP Sys/Marisol/Mean (mmHg): 131 : 76 : 87 Pulse: 84 LaborFlag: Labor Datetime: 11/22/2024 20:29 SpO2 (%): 97 Datetime: 11/21/2024 23:42 ASSESSMENT A Monitor Mode: External US FHR Baseline Rate : 135 FHR Baseline Changes: No Baseline Change Decelerations: Early; Prolonged STAGE 2 Pushing: Coached on Pushing; Involuntary Pushing Pushing Position: Pushing with Contractions Pushing Progress: Descent with Pushing; Presenting Part Visible Datetime: 11/21/2024 23:36 UTERINE ACTIVITY Monitor Mode: Internal Frequency (min): 1-2 Quality: Strong Duration (sec): 80 Pattern: Normal: <= 5 Contractions in 10 Minutes Resting Tone (Palpate): Relaxed Variability: Minimal - Undetectable to <=5 bpm Category: Category II PATIENT CARE Oxygen Method: Room Air Datetime: 11/21/2024 23:32 MEDICATIONS Pitocin (milliunits): Discontinued Datetime: 11/21/2024 23:20 Resting Tone IUP (mmHg): 15 Intensity IUP (mmHg): 50 [place] Units (mmHg): 155 Datetime: 11/21/2024 23:15 PAIN Pain Scale: 8 Pain Goal: 1 Datetime: 11/21/2024 23:05 Accelerations: 15X15 Datetime: 11/21/2024 22:58 Patient Position/Activity: Right Lateral Datetime: 11/21/2024 22:54 Actions for Decelerations: Hands and Knees Pain Presence: Constant Pain Type: Pressure Pain Location: Perineum Pain Relief Measures: Epidural Given Pain Assessment Comments: wanting to push Comfort Measures: Coaching Stage 2 Comments: involuntary stooling Datetime: 11/21/2024 22:52 VAGINAL EXAM Dilatation (cm): 9.5 Effacement (%): 100 Station: 0 Exam by: Dr Pappas Vaginal Bleeding: Normal Show Cervix, Consistency: Soft Cervix, Position: Anterior Datetime: 11/21/2024 22:13 Comments: position change Datetime: 11/21/2024 22:00 Pain Coping: Other Datetime: 11/21/2024 21:39 Monitor Interventions for FHR: Ultrasound Adjusted Datetime: 11/21/2024 21:38 Patient Care Comments: peanut ball Datetime: 11/21/2024 21:31 Contraction Comments: coupling Datetime: 11/21/2024 21:02 Respirations: 16 Temperature (C): 37.0 Membrane Status: Intact MATERNAL ASSESSMENT Level of Consciousness: Alert Headache: Denies Nausea/Vomiting: Denies I/O Interventions: Ice Chips Given ANESTHESIA Anesthesia Plans: Epidural COMMUNICATION Communication: RN at Bedside; RN Reviewed Strip Provider Notified (Name): lazaro Notification Reason: Pain Communication Comments: more comfortable with ctx Datetime: 11/21/2024 19:42 Monitor Interventions for UA: [place] Adjusted Datetime: 11/21/2024 14:55 Epidural Procedure: Test Dose Datetime: 11/21/2024 14:42 PROCEDURE TIME OUT Procedure Verify: Correct Patient Identity; Correct Side and Site are Marked; Accurate Procedure Co nsent Form; Agreement on Procedure to be Done; Correct Patient Position; Relevant Images and Results are Properly Labeled and Displayed Datetime: 11/21/2024 08:48 Membranes Ruptured Date/Time: 11/21/2024 08:48 Membranes Rupture Method: Artificial Amniotic Fluid Color: Clear Amniotic Fluid Amount: Moderate Amniotic Fluid Odor: Normal Datetime: 11/21/2024 05:30 Pitocin Checklist: At Least 1 Acceleration of 15 bpm x 15 Seconds in 30 Minutes or Adequate Variabi lity; No More than 1 Late Deceleration Occurred in Past 30 Minutes; No More than 2 Variable Decelerat ions > 60 Seconds in Duration and decreasing >60 bpm in 30 minutes; No More than 5 Uterine Contractio ns in 10 Minutes for any 20 Minute Interval; Uterus Palpates Soft between Contractions Datetime: 11/21/2024 02:39 Vaginal Exam Comments: Moderate amount of dark red blood present on vaginal exam. Datetime: 11/21/2024 00:59 Temperature Route: Oral Datetime: 11/20/2024 23:00 Vital Sign Comments: Patient laying on arm with BP cuff, arm bent. Patient sleeping. Datetime: 11/20/2024 19:12 Medication Comments: Patient updated on status and change in medication infusion rate. Datetime: 11/20/2024 16:52 Cervical Ripening Agents: [place] Balloon; Cytotec @ Datetime: 11/20/2024 15:00 Stage of : Labor Datetime: 11/20/2024 13:25 Anesthesia Comments: Lidocain Datetime: 11/19/2024 20:35 Analgesics/Sedatives: Fentanyl (mcg) @ 50 mcg at 2035 Datetime: 11/19/2024 14:09 Teaching Comments: Sivakumar's maneuvers by RN Datetime: 11/19/2024 08:57 TEACHING Instructional Method: Verbal Labor/Induction: Cervical Ripening Medications: Cervical Ripening Datetime: 11/18/2024 21:30 CEDENO'S SCORE Dilatation (cm): Closed Effacement: >80_ effaced Station: minus 2 Consistency: Firm Position: Posterior Total Cedeno's Score: 4 : 0-4 = Unfavorable cervix
== END 2024-11-23 12:00 | disposition home or self-care (01) | DRG 807 ==
LOC: WFO 20:18 → FBP 20:23
PROVIDERS: ADMIT Obstetrics & Gynecology; ATTEND Obstetrics & Gynecology
DX: O13.4 Gestational [pregnancy-induced] hypertension without significant proteinuria, complicating childbirth; O76 Abnormality in fetal heart rate and rhythm complicating labor and delivery; Z37.0 Single live birth; Z3A.37 37 weeks gestation of pregnancy; O99.824 Streptococcus B carrier state complicating childbirth; O70.0 First degree perineal laceration during delivery